=== PATIENT | male | born 1955 | race Two or more races ===

== ENCOUNTER 2019-04-19 21:18 | Emergency (ER) | payer MEDICAID, OTHER ==
[~2019-04-19] VITALS: Ht 172.7 cm; Wt 80.7 kg
[2019-04-19 21:21] VITALS: BP 156/91
[2019-04-19] MEDS ORDERED: METO25TA35 PO (21:33)
[2019-04-19] MEDS ORDERED: WARF2.5T74 PO (21:33)
[2019-04-19] MEDS ORDERED: SIMV5TAB14 PO (21:33)
[2019-04-19] MEDS ORDERED: OXYMETAZOLINE NASAL SPRAY 0.05%,30ML ONE (21:36)
--- NOTE | 2019-04-19 21:41 | NUR ---
melinda per jul.
[2019-04-19] MEDS ORDERED: OXYMETAZOLINE NASAL SPRAY 0.05%, 15ML NAS ONE (22:00)
[2019-04-19 22:01] LABS: INTERNATIONAL NORMALIZED RATIO 3.87 (0.93-1.1)
[2019-04-19 22:07] LABS: PROTHROMBIN TIME 38.6 Seconds (9.6-11.5)
== END 2019-04-19 22:45 | disposition home or self-care (01) ==
LOC: ED 22:06
DX: R04.0 Epistaxis (principal); I10 Essential (primary) hypertension; E78.00 Pure hypercholesterolemia, unspecified
CPT/HCPCS: 36415; 85610; 99283

== ENCOUNTER → 2020-04-26 | Outpatient (CLI) | payer MEDICAID ==
[~2020-04-26] MED LIST: METO25TA35 PO; SIMV5TAB14 PO; WARF2.5T74 PO
== END | disposition home or self-care (01) ==
LOC: CFH 13:26
PROVIDERS: ATTEND Nurse Practitioner Family
DX: I08.3 Combined rheumatic disorders of mitral, aortic and tricuspid valves (principal)
CPT/HCPCS: 93306